=== PATIENT | female | born 1950 | race Caucasian/White ===

== ENCOUNTER → 2020-02-08 | Outpatient (CLI) | payer MEDICARE ==
[~2020-02-08] MED LIST: AMBIEN 5MG TABLE5 MG PO; CORGARD PO; CYCLOBENZAPRINE10 MG PO; CYMBALTA60 MG PO; TOPAMAX25 MG PO; VICODIN 5/5001 UDTAB PO; ZOMIG 2.5MG2.5 MG PO
== END ==
LOC: MC.RAD 16:21
DX: Z12.31 Encounter for screening mammogram for malignant neoplasm of breast (principal)